=== PATIENT | male | born 1970 | race African-American/Black ===

== ENCOUNTER 2018-09-03 11:08 | Emergency (ER) | payer OTHER ==
[~2018-09-03] VITALS: Ht 172.7 cm; Wt 80.0 kg
[2018-09-03 11:09] VITALS: Ht 172.7 cm; Wt 80.0 kg
--- NOTE | 2018-09-03 11:16 | ERD ---
ER Documentation Chief Complaint Chief Complaint WITNESSED SEIZURE AN HOUR AGO HPI This is a 48-year-old male who presents for evaluation of an absence seizure, patient has history of recurrent seizures, he is currently on Keppra car bamazepine, and phenytoin for seizures. He has seizures fairly regularly, but 1 of his nursing caregivers stated that the patient was a little bit slower to respond after 1 of his absent seizures which is not normal for him. This was the reason for evaluation, the patient has had no head trauma he denies any fever, on my evaluation, he stated that he felt well, but does wish that he did have so many seizures, as he has been on seizure medication since the age of 20. There are no alleviating or aggravating factors. ROS All systems reviewed and are negative except as per history of present illness. Medications Home Meds Reported Medications Calcium Carbonate ([id number]) 500 Mg Tablet, 500 MG PO BID, TAB 09/03/18 Omeprazole* (Omeprazole*) 20 Mg Capsule.dr, 20 MG PO DAILY, #30 CAP 09/03/18 Ziprasidone* (Geodon*) 80 Mg Capsule, 80 MG PO BID, CAP 09/03/18 Diphenhydramine Hcl* (Benadryl*) 50 Mg Cap, 50 MG PO QHS PRN for ITCHING, CAP 09/03/18 Risperidone* (Risperidone*) 4 Mg Tablet, 4 MG PO BID, TAB 09/03/18 Phenytoin* Sodium Extended (Dilantin*) 100 Mg Capsule, 100 MG PO BID, CAP 09/03/18 Levetiracetam* (Keppra*) 500 Mg Tablet, 500 MG PO BID, TAB 09/03/18 Divalproex Sodium* (Divalproex Sodium*) 500 Mg Tablet.dr, 1500 MG PO TID, #90 TAB 09/03/18 Carbamazepine* (Carbamazepine*) 100 Mg Tab.chew, 200 MG PO BID, #60 TAB.CHEW 09/03/18 Docusate Sodium* (Docusate Sodium*) 100 Mg Capsule, 100 MG PO TID, #30 CAP 09/03/18 Acetaminophen* (Acetaminophen*) 325 Mg Tablet, 325 MG PO Q4H PRN for PAIN AND OR ELEVATED TEMP, #30 TAB 09/03/18 Oxybutynin Chloride* (Ditropan*) 5 Mg Tab, 1 TAB ORAL DAILY 09/03/18 Allergies Allergies: Coded Allergies: No Known Allergy (Unverified , 09/03/18) Physical Exam Vitals Vital Signs Date Temp Pulse Resp B/P (MAP) Pulse Ox O2 O2 Flow FiO2 Time Delivery Rate 09/03/18 97.7 79 18 149/75 98 11:09 (99) Physical Exam Const: Pleasant well-appearing nontoxic Head: Atraumatic Eyes: Normal Conjunctiva ENT: Normal External Ears, Nose and Mouth. Neck: Full range of motion. No meningismus. Resp: Clear to auscultation bilaterally Cardio: Regular rate and rhythm, no murmurs Abd: Soft, non tender, non distended. Normal bowel sounds Skin: No petechiae or rashes Back: No midline or flank tenderness Ext: No cyanosis, or edema Neur: Awake and alert, strength 5 out of 5 bilaterally, no cerebellar ataxia Psych: Normal Mood and Affect Result Diagram: 09/03/18 1139 09/03/18 1139 Results 24 hrs Laboratory Tests Test 09/03/18 11:39 White Blood Count 5.7 10^3/ul Red Blood Count 4.28 10^6/ul Hemoglobin 12.7 g/dl Hematocrit 38.4 % Mean Corpuscular Volume 89.7 fl Mean Corpuscular Hemoglobin 29.7 pg Mean Corpuscular Hemoglobin Concent 33.1 g/dl Red Cell Distribution Width 12.5 % Platelet Count 205 10^3/UL Mean Platelet Volume 9.9 fl Immature Granulocytes % 0.200 % Neutrophils % 55.8 % Lymphocytes % 35.0 % Monocytes % 8.1 % Eosinophils % 0.5 % Basophils % 0.4 % Nucleated Red Blood Cells % 0.0 /100WBC Immature Granulocytes # 0.010 10^3/ul Neutrophils # 3.2 10^3/ul Lymphocytes # 2.0 10^3/ul Monocytes # 0.5 10^3/ul Eosinophils # 0.0 10^3/ul Basophils # 0.0 10^3/ul Nucleated Red Blood Cells # 0.0 10^3/ul Sodium Level 142 mmol/L Potassium Level 4.4 mmol/L Chloride Level 104 mmol/L Carbon Dioxide Level 27 mmol/L Anion Gap 11 Blood Urea Nitrogen 15 mg/dl Creatinine 0.85 mg/dl Est Glomerular Filtrat Rate mL/min > 60 mL/min Glucose Level 105 mg/dl Calcium Level 9.2 mg/dl Total Bilirubin 0.1 mg/dl Direct Bilirubin 0.00 mg/dl Indirect Bilirubin 0.1 mg/dl Aspartate Amino Transf (AST/SGOT) 31 IU/L Alanine Aminotransferase (ALT/SGPT) 21 IU/L Alkaline Phosphatase 121 IU/L Total Protein 8.3 g/dl Albumin 4.4 g/dl Globulin 3.90 g/dl Albumin/Globulin Ratio 1.12 Current Medications Medications Dose Sig/Edy Start Time Status Last (Trade) Ordered Route PRN Stop Time Admin Dose Reason Admin 1,000 mg ONCE STAT 09/03/18 DC 09/03/18 Acetaminophen PO 11:45 11:55 (Tylenol 09/03/18 11:46 Tab) Procedures/MDM Is a 48-year-old who presents for evaluation of recurrent seizure, on my evaluation, the patient did not appear postictal, was well-appearing nontoxic with no evidence of head trauma. His CT brain was negative, and his lab workup was overall unremarkable, I discussed findings with the patient, who felt comfortable with discharge plan of care, at discharge she was ambulatory with a steady gait and in no acute distress. He is following up with his PMD, advised him to discuss any adjustments of his seizure medications, patient and nurse both agreed to plan. EKG: Rate/Rhythm: Normal Sinus Rhythm QRS, ST, T-waves: No changes consistent w/ acute ischemia Impression: No evidence of ischemia or arrhythmia Departure Diagnosis: Primary Impression: Epilepsy Epilepsy type: unspecified Intractability: not intractable Status epilepticus: without status epilepticus Qualified Codes: G40.909 - Epilepsy, unspecified, not intractable, without status epilepticus Condition: JESUS Naqvi MD Sep 03, 2018 11:16
[2018-09-03] MEDS ORDERED: ACETAMINOPHEN 500 MG TAB PO STA (11:45)
[2018-09-03] MEDS ORDERED: ZIPR80CA22 PO (12:21)
[2018-09-03] MEDS ORDERED: RISP4TAB2 PO (12:21)
[2018-09-03] MEDS ORDERED: OXYB5TAB7 ORAL (12:21)
[2018-09-03] MEDS ORDERED: PHEN100C PO (12:21)
[2018-09-03] MEDS ORDERED: DOCU-159 PO (12:21)
[2018-09-03] MEDS ORDERED: DIVA-16 PO (12:21)
[2018-09-03] MEDS ORDERED: CARB100T2 PO (12:21)
[2018-09-03] MEDS ORDERED: OMEP20CA16 PO (12:21)
[2018-09-03] MEDS ORDERED: ACET325T45 PO (12:21)
[2018-09-03] MEDS ORDERED: LEVE-5 PO (12:21)
[2018-09-03] MEDS ORDERED: BEN50 PO (12:21)
[2018-09-03] MEDS ORDERED: CALC500T91 PO (12:23)
[2018-09-03 14:23] VITALS: BP 135/68; PULSE 80; RESP 18
== END 2018-09-03 14:24 | disposition home or self-care (01) ==
LOC: E/R 11:08
DX: G40.909 Epilepsy, unspecified, not intractable, without status epilepticus (principal)
CPT/HCPCS: 70450; 80053; 85025; 93005; Z7502; Z7610